=== PATIENT | male | born 1965 | race Hispanic/Latino ===

== ENCOUNTER → 2019-08-12 | Outpatient (CLI) | payer OTHER ==
--- NOTE | 2019-08-12 10:11 | Diagnostic Imaging Report ---
EXAMINATION: CHEST 2 VIEWS INDICATION: Chronic cough COMPARISON: None FINDINGS: LINES/TUBES:None LUNGS:The lungs are moderately inflated. Mild patchy left lower lobe opacity. PLEURA:No pleural effusion or pneumothorax. MEDIASTINUM:The cardiomediastinal silhouette appears normal in size and shape. BONES/SOFT TISSUES:No acute osseous injury. ABDOMEN:No free air under the diaphragm. IMPRESSION: Mild patchy left lower lobe opacity, possibly representing aspiration or pneumonia in the proper clinical setting. RECOMMENDATIONS: Follow-up PA and lateral chest radiographs in 6-8 weeks following treatment to assess for resolution. Signed by: Huyen Burgos MD on 08/12/2019 10:08 AM
== END ==
LOC: RAD 09:23
PROVIDERS: ATTEND Family Medicine
DX: R05 Cough (principal)
CPT/HCPCS: 71046

== ENCOUNTER → 2019-09-24 | Outpatient (CLI) | payer OTHER ==
--- NOTE | 2019-09-24 10:03 | Diagnostic Imaging Report ---
EXAMINATION: CHEST 2 VIEWS INDICATION: Pneumonia COMPARISON: Chest radiograph 08/12/2019 FINDINGS: LINES/TUBES:None LUNGS:Lung aeration has improved compared to the prior radiograph. No focal consolidation or pulmonary edema. Left basilar subsegmental atelectasis. PLEURA:No pleural effusion or pneumothorax. MEDIASTINUM:The cardiomediastinal silhouette appears unchanged in size and shape. BONES/SOFT TISSUES:No acute osseous injury. ABDOMEN:No free air under the diaphragm. IMPRESSION: Left basilar subsegmental atelectasis. No focal pneumonia or pulmonary edema. Signed by: Huyen Burgos MD on 09/24/2019 10:00 AM
== END ==
LOC: RAD 09:13
PROVIDERS: ATTEND Internal Medicine Critical Care Medicine
DX: R91.8 Other nonspecific abnormal finding of lung field (principal)
CPT/HCPCS: 71046